=== PATIENT | male | born 1960 | race Caucasian/White ===

== ENCOUNTER 2016-11-30 17:05 | Emergency (ER) | payer OTHER ==
[2016-11-30] MEDS ORDERED: MUCINEX FAST-M1 EA12 PO (17:55)
--- NOTE | 2016-11-30 18:42 | ED SKIN/ALLERGY COMPLAINT ---
History of Present Illness General Chief Complaint: General Adult Stated Complaint: PT TOOK SOMETHING AND IS HAVING REACTION TO IT Source: patient Exam Limitations: no limitations Vital Signs & Intake/Output Vital Signs & Intake/Output Vital Signs Date Time Temp Pulse Resp B/P B/P Pulse O2 O2 Flow FiO2 Mean Ox Delivery Rate 11/30 1742 Room Air 11/30 1721 96.9 91 20 158/90 96 Room Air Allergies Coded Allergies: No Known Allergies (11/30/16) Reconcile Medications Guaifen/Phenyleph/Acetaminophn (Mucinex Fast-Max Cold-Sinus Tb) (Unknown Strength) TABLET (Unknown Dose) PO ONCE COLD SYMPTOMS (Reported) Triamcinolone Acetonide 0.1 % OINT...G. 1 RODO TOP BID PRN RASH apply to affected area(s) 0.1% Triage Note: PER PT SINUS ISSUES SINCE SUNDAY, TAKING VARIOUS OTC MEDS WITHOUT EFFECT, TODAY TOOK MUCINEX AT 1000AM, LAID DOWN WOKE UP AT 12NOON FELT ITCHY, BY 2PM RASH TO HEAD AND FOREHEAD, NOW JUST SEERING BURNING PAIN TO FOREHEAD. NO RESP DISTRESS, BUT COUGHING{ PREVIOUS} WELTS NOTED TO FOREHEAD. Triage Nurses Notes Reviewed? yes HPI: Patient presents for evaluation of an itchy blotchy rash over the forehead. Patient states that he began taking an [id number] cough and cold medication 2 or 3 days ago. Today he took another dose of the medication with an onset of an itchy blotchy red rash over the forehead that has been constant since abrupt onset today. He spoke with the medication hotline and his primary care physician and was told to report to the emergency department. Past History Travel History Traveled to [place] past 21 day No Medical History Any Pertinent Medical History? see below for history Neurological: NONE EENT: NONE Cardiovascular: NONE Respiratory: NONE Gastrointestinal: NONE Hepatic: NONE Renal: NONE Musculoskeletal: NONE Psychiatric: NONE Endocrine: NONE Surgical History Surgical History: non-contributory Psychosocial History What is your primary language Tristanian Tobacco Use: Never used Family History Hx Contributory? No Review of Systems Review of Systems Constitutional: Reports: no symptoms. EENTM: Reports: no symptoms. Respiratory: Reports: no symptoms. Cardiovascular: Reports: no symptoms. GI: Reports: no symptoms. Genitourinary: Reports: no symptoms. Musculoskeletal: Reports: no symptoms. Skin: Reports: see HPI. Neurological/Psychological: Reports: no symptoms. Hematologic/Endocrine: Reports: no symptoms. Immunologic/Allergic: Reports: no symptoms. All Other Systems: Reviewed and Negative Physical Exam Physical Exam General Appearance: see below Comments: gen: wn, wd, no acute resp distress head: nc/at eyes: normal inspection ears: normal inspection nose: normal inspection throat/mouth: moist mucosa neck: supple, from, no goiter heart: rrr, no mrg lungs: cta bilaterally with normal air entry chest: nt abd: soft, nd, normal bowel sounds, nontender back: normal range of motion ext: normal range of motion, no cyanosis, clubbing or edema skin: warm and dry, macular rash of forehead without ecchy or vesicles circulatory: normal radial pulses neuro: cn 2-12 grossly intact, speech clear psych: calm, cooperative, no apparent delusion, hallucinations or pressured speech Progress Differential Diagnosis: abscess/cellulitis, allergic reaction, anaphylaxis, contact dermatitis, drug reaction Plan of Care: see d/c instructions Comments: Other than the maculopapular itchy for head rash I see no other clinical signs or symptoms of systemic allergic reaction or anaphylaxis. Leave the patient is having a "reaction" to the [id number] cold preparations he has been taking. I asked about outdoor activities and the patient states he is always outside. I suspect the patient has had an exposure to a poison plant. Departure Departure Disposition: HOME OR SELF CARE Condition: Stable Clinical Impression Primary Impression: Dermatitis of face Referrals: CORKY VILLASENOR MD (PCP/Family) Additional Instructions: Steroid ointment as prescribed. Ojni-[id number]-[id number] Benadryl ointment or pills as needed for itch until the steroid cream begins to work. Follow-up with your primary care doctor in 7-10 days if not improving. Return if any concerns or sudden worsening. Departure Forms: Customer Survey General Discharge Information Prescriptions: Current Visit Scripts Triamcinolone Acetonide 1 RODO TOP BID PRN RASH #1 TUBE apply to affected area(s) 0.1%
[2016-11-30] MEDS ORDERED: TRIAMCINOLONE A15 G3 TOP (18:51)
[2016-11-30 19:05] VITALS: BP 128/84
== END 2016-11-30 19:06 ==
LOC: ERH 17:05
DX: L30.9 Dermatitis, unspecified (principal)